=== PATIENT | female | born 2000 | race Caucasian/White ===

== ENCOUNTER 2019-02-24 20:28 | Emergency (ER) | payer BC ==
[2019-02-24 20:46] VITALS: BP 118/74
--- NOTE | 2019-02-24 20:58 | UC ---
Lower Extremity/Ankle HPI - HPI Summary HPI Summary: 19 yo injured left ankle early this afternoon doing a cartwheel able to bear wt c/o lateral> medial pain remote hx left ankle fx (casted) - History of Current Complaint Chief Complaint: UCLowerExtremity Stated Complaint: L FOOT INJ Time Seen by Provider: 02/24/19 20:39 Hx Obtained From: Patient Hx Last Menstrual Period: 02/16/19 Onset/Duration: Sudden Onset, Lasting Minutes Severity Initially: Moderate Severity Currently: Mild Pain Intensity: 2 Pain Scale Used: 0-10 Numeric Aggravating Factor(s): Standing, Ambulation Alleviating Factor(s): Rest, Elevation, Ice, OTC Meds Able to Bear Weight: Yes Feet (Multiple View): 1 - tender/swollen, antalgic gait - Allergies/Home Medications Allergies/Adverse Reactions: Allergies Allergy/AdvReac Type Severity Reaction Status Date / Time No Known Allergies Allergy Verified 02/24/19 20:39 Home Medications: Home Medications Ethinyl Estradiol/Drospirenone [Ocella 3-0.03 mg] 1 tab PO BEDTIME 02/24/19 [ History Confirmed 02/24/19] PMH/Surg Hx/FS Hx/Imm Hx Previously Healthy: Yes - Surgical History Surgical History: None - Family History Known Family History: Negative: Cardiac Disease, Diabetes - Social History Alcohol Use: Occasionally Substance Use Type: None Smoking Status (MU): Never Smoked Tobacco Review of Systems All Other Systems Reviewed And Are Negative: Yes Constitutional: Positive: Negative Skin: Positive: Negative Eyes: Positive: Negative ENT: Positive: Negative Respiratory: Positive: Negative Cardiovascular: Positive: Negative Gastrointestinal: Positive: Negative Genitourinary: Positive: Negative Motor: Positive: Negative Neurovascular: Positive: Negative Musculoskeletal: Positive: Arthralgia - left ankle Neurological: Positive: Negative Psychological: Positive: Negative Physical Exam Triage Information Reviewed: Yes Appearance: Well-Appearing, No Pain Distress, Well-Nourished Vital Signs: Initial Vital Signs Temp 98.8 F 02/24/19 20:41 Pulse 102 02/24/19 20:41 Resp 18 02/24/19 20:41 BP 118/74 02/24/19 20:41 Pulse Ox 99 02/24/19 20:41 Vital Signs Reviewed: Yes Eyes: Positive: Conjunctiva Clear ENT: Positive: Hearing grossly normal. Negative: Nasal congestion, Nasal drainage, Trismus, Muffled voice, Hoarse voice Neck: Positive: Supple, Nontender, No Lymphadenopathy Respiratory: Positive: Lungs clear, Normal breath sounds, No respiratory distress, No accessory muscle use Cardiovascular: Positive: RRR, No Murmur Musculoskeletal: Positive: ROM Intact, Other: - see image Neurological: Positive: Alert Psychological Exam: Normal Skin Exam: Normal Diagnostics - Radiology No standard instances Radiology Interpretation Completed By: ED Physician Summary of Radiographic Findings: no fx noted, slight irreg distal fibula which I suspect is from prior fx Lower Extremity Course/Dx - Differential Dx/Diagnosis Provider Diagnosis: Left ankle sprain Discharge ED - Sign-Out/Discharge Documenting (check all that apply): Patient Departure All imaging exams completed and their final reports reviewed: No - Discharge Plan Condition: Stable Disposition: HOME Patient Education Materials: Ankle Sprain (ED), R.I.C.E. Treatment (ED) Referrals: Graeme Soto MD [Medical Doctor] - 1 Week (recheck in 1-2 weeks if not better) Additional Instructions: rest ice elevation advil or aleve offical xr report pending - Billing Disposition and Condition Condition: STABLE Disposition: Home
--- NOTE | 2019-02-25 11:08 | ED ---
Progress - Progress Note Progress Note: Final read reviewed. STS lateral malleolus Course/Dx - Diagnoses Provider Diagnoses: Left ankle sprain Discharge ED - Sign-Out/Discharge Documenting (check all that apply): Patient Departure All imaging exams completed and their final reports reviewed: Yes - Discharge Plan Condition: Stable Disposition: HOME Patient Education Materials: Ankle Sprain (ED), R.I.C.E. Treatment (ED) Forms: *Physical Education Release, *School Release Referrals: Graeme Soto MD [Medical Doctor] - 1 Week (recheck in 1-2 weeks if not better) Additional Instructions: rest ice elevation advil or aleve offical xr report pending - Billing Disposition and Condition Condition: STABLE Disposition: Home
== END 2019-02-24 21:30 | disposition home or self-care (01) ==
LOC: UCCORT 20:28
DX: S93.402A Sprain of unspecified ligament of left ankle, initial encounter (principal); X50.0XXA Overexertion from strenuous movement or load, initial encounter; Y93.89 Activity, other specified; Y92.9 Unspecified place or not applicable
CPT/HCPCS: 99203; G0463

== ENCOUNTER 2019-05-29 14:11 | Emergency (ER) | payer BC ==
[2019-05-29 14:28] VITALS: BP 116/66
--- NOTE | 2019-05-29 14:56 | UC ---
Throat Pain/Nasal Calvin HPI - HPI Summary HPI Summary: Pt presents with c/o sudden onset of ST, swollen tonsils and white spots on tonsil that she noticed this morning. Pt states that her brother had similar c/ o and was diagnosed with tonsillitis and given an antibiotic. Pt states she feels fine otherwise and was "out last night" with her friends. Pt denies hx of mono. - History of Current Complaint Chief Complaint: UCGeneralIllness Stated Complaint: SORE THROAT Time Seen by Provider: 05/29/19 14:32 Hx Obtained From: Patient Hx Last Menstrual Period: 02/16/19 ?: No Onset/Duration: Sudden Onset, Still Present Severity: Mild Pain Intensity: 0 Cough: None Associated Signs & Symptoms: Positive: Other - swollen tonsils and "white spots " on tonsils - Epiglottits Risk Factors Epiglottis Risk Factors: Sudden Onset - Allergies/Home Medications Allergies/Adverse Reactions: Allergies Allergy/AdvReac Type Severity Reaction Status Date / Time No Known Allergies Allergy Verified 05/29/19 14:28 PMH/Surg Hx/FS Hx/Imm Hx Previously Healthy: Yes - Surgical History Surgical History: None - Family History Known Family History: Negative: Cardiac Disease, Diabetes - Social History Occupation: Student - [employer] Lives: Dormitory/Roommates Alcohol Use: Occasionally Substance Use Type: None Smoking Status (MU): Never Smoked Tobacco Have You Smoked in the Last Year: No - Immunization History Vaccination Up to Date: Yes Review of Systems All Other Systems Reviewed And Are Negative: Yes Constitutional: Positive: Fever Skin: Positive: Negative Eyes: Positive: Negative ENT: Positive: Sore Throat Respiratory: Positive: Negative Cardiovascular: Positive: Negative Gastrointestinal: Positive: Negative Genitourinary: Positive: Negative Motor: Positive: Negative Neurovascular: Positive: Negative Musculoskeletal: Positive: Negative Neurological: Positive: Negative Psychological: Positive: Negative Is Patient Immunocompromised?: No Physical Exam Triage Information Reviewed: Yes Appearance: Well-Appearing Vital Signs: Initial Vital Signs Temp 100.1 F 05/29/19 14:24 Pulse 88 05/29/19 14:24 Resp 18 05/29/19 14:24 BP 116/66 05/29/19 14:24 Pulse Ox 100 05/29/19 14:24 Vital Signs Reviewed: Yes Eye Exam: Normal ENT: Positive: Pharyngeal erythema, Tonsillar swelling, Tonsillar exudate Dental Exam: Normal Neck exam: Normal Respiratory Exam: Normal Cardiovascular Exam: Normal Musculoskeletal Exam: Normal Neurological Exam: Normal Psychological Exam: Normal Skin Exam: Normal Throat Pain/Nasal Course/Dx - Course Course Of Treatment: I discussed viral vs bacterial and pt stated she thought she need an antibiotic as her brother got one with the same symptoms. - Differential Dx/Diagnosis Differential Diagnosis/HQI/PQRI: Mononucleosis, Pharyngitis, Tonsillitis, Other - strep Provider Diagnosis: Tonsillitis Discharge ED - Sign-Out/Discharge Documenting (check all that apply): Patient Departure All imaging exams completed and their final reports reviewed: No Studies - Discharge Plan Condition: Stable Disposition: HOME Prescriptions: Penicillin VK 500 MG TAB(NF) [Penicillin VK 500 mg Tab] 500 mg PO Q8H #30 tab predniSONE TAB* [Deltasone 10 MG TAB*] 30 mg PO DAILY #12 tab Patient Education Materials: Tonsillitis (ED) Referrals: [facility] [Outside] - If Needed No Primary Care Phys,NOPCP [Primary Care Provider] - - Billing Disposition and Condition Condition: STABLE Disposition: Home - Attestation Statements Provider Attestation: I was available for consult. This patient was seen by the HAYDEE. The patient was not presented to , seen by or examined by nj -Daniel Beavers MD
== END 2019-05-29 15:08 | disposition home or self-care (01) ==
LOC: UCCORT 14:11
DX: J03.90 Acute tonsillitis, unspecified (principal)
CPT/HCPCS: 36415; 86308; 87651; 99212; G0463